=== PATIENT | female | born 1980 | race Caucasian/White ===

== ENCOUNTER 2017-12-09 09:04 | Inpatient (IN) | payer BC, OTHER ==
[2017-12-09] MEDS ORDERED: LR 1,000 ML IV ONE (09:27)
[2017-12-09] MEDS ORDERED: ACETAMINOPHEN 500 MG TAB PO ONE (10:12)
[2017-12-09] MEDS ORDERED: morphINE PF 0.2 MG in SYRINGE INTRATHECAL 1 SYR IT ONE (10:12)
[2017-12-09] MEDS ORDERED: GABAPENTIN 300 MG CAP PO ONE (10:12)
[2017-12-09] MEDS ORDERED: ceFAZolin 2 GM/DEXTROSE 100 ML IV ONE (10:12)
[2017-12-09] MEDS ORDERED: morphINE SR 15 MG TAB PO ONE ×2 (10:13→10:42)
--- NOTE | 2017-12-09 10:22 | PDHPUP ---
History & Physical Update H&P update statement: This history and physical update is based on an assessment of the patient which was completed after admission or registration (within 24 hours), but prior to the surgery/procedure. H&P update: H&P reviewed & patient examined, no change in patient's condition since H&P completed (Consents signed and site marked. All questions answered. Re-iterated the increased risk of complications like CSF leak. She is willing to proceed.)
[2017-12-09] MEDS ORDERED: BUPIVACAINE 0.25% 30 ML SDV ONE ×2 (10:38→10:40)
[2017-12-09] MEDS ORDERED: THROMBIN (BOVINE) 20,000 UNIT VIAL TP ONE (10:38)
[2017-12-09] MEDS ORDERED: BACITRACIN 50,000 UNITS/10 ML SYR IRR ONE (10:39)
[2017-12-09] MEDS ORDERED: EPINEPHrine 1 MG/ML INJ ONE (10:39)
--- NOTE | 2017-12-09 10:50 | PDANEPAE ---
ANE Past Medical History - Cardiovascular History Hx Hypertension: No Hx Arrhythmias: No Hx Chest Pain: No Hx Coronary Artery / Peripheral Vascular Disease: No Hx CHF / Valvular Disease: No Hx Palpitations: No - Pulmonary History Hx COPD: No Hx Asthma/Reactive Airway Disease: No Hx Recent Upper Respiratory Infection: No Hx Oxygen in Use at Home: No Hx Sleep Apnea: No Sleep Apnea Screening Result - Last Documented: Negative - Neurologic History Hx Cerebrovascular Accident: No Hx Seizures: No Hx Dementia: No - Endocrine History Hx Diabetes: No - Renal History Hx Renal Disorders: No - Liver History Hx Hepatic Disorders: No - Neurological & Psychiatric Hx Hx Neurological and Psychiatric Disorders: Yes Neurological / Psychiatric History Comment: sciatica, pinched nerve stabbing pain to r side of ankle and top of ankle,numb toes. decreased sensation on rle - Cancer History Hx Cancer: No - Congenital Disorder History Hx Congenital Disorders: No - GI History Hx Gastrointestinal Disorders: No - Other Health History Other Health History: none - Chronic Pain History Chronic Pain: Yes (right buttock) - Surgical History Prior Surgeries: none ANE Review of Systems Review of Systems: - Exercise capacity METS (RN): 4 METS ANE Patient History - Allergies Allergies/Adverse Reactions: No Known Allergies Allergy (Verified 12/01/17 14:28) - Home Medications Home Medications: Cyclobenzaprine [Flexeril 10 MG (*)] 10 mg PO TID 12/01/17 [Last Taken 12/08/17 22:00] Ibuprofen [Motrin (*)] 200 mg PO DAILY PRN 12/01/17 [Last Taken 12/02/17] Pregabalin [Lyrica 75mg (*)] 75 mg PO TID 12/01/17 [Last Taken 12/09/17 02:00] oxyCODONE IR [Oxycodone Ir (*)] 5 mg PO Q4HRS 12/01/17 [Last Taken 12/09/17 06: 00] - NPO status NPO Since - Liquids (Date): 12/09/17 NPO Since - Liquids (Time): 06:00 NPO Since - Solids (Date): 12/08/17 NPO Since - Solids (Time): 19:00 - Smoking Hx Smoking Status: Never smoked - Family Anes Hx Family Hx Anesthesia Complications: none ANE Labs/Vital Signs - Vital Signs Blood Pressure: 127/87 Heart Rate: 102 Respiratory Rate: 16 O2 Sat (%): 98 Height: 172.72 cm Weight: 65.771 kg ANE Physical Exam - Airway Neck exam: FROM Mallampati Score: Class 1 Mouth exam: normal dental/mouth exam - Pulmonary Pulmonary: no respiratory distress - Cardiovascular Cardiovascular: regular rate and rhythym - ASA Status ASA Status: I ANE Anesthesia Plan Anesthesia Plan: general endotracheal anesthesia
[2017-12-09] MEDS ORDERED: MIDAZOLAM 2 MG/2 ML VIAL ONE (10:54)
[2017-12-09] MEDS ORDERED: PROPOFOL/EMULSION 500 MG/50 ML BOTTLE IV ONE ×2 (10:54→11:47)
[2017-12-09] MEDS ORDERED: POLYETHYLENE GLYCOL 3350 17 GM PKT PO PRN (13:04)
[2017-12-09] MEDS ORDERED: MAGNESIUM HYDROXIDE 30 ML UDCUP PO PRN (13:04)
[2017-12-09] MEDS ORDERED: BISACODYL 10 MG SUPP PR PRN (13:04)
[2017-12-09] MEDS ORDERED: ONDANSETRON DISINTEGRATING 4 MG TAB PO PRN (13:04)
[2017-12-09] MEDS ORDERED: ONDANSETRON 4 MG/2 ML VIAL IVP PRN ×2 (13:04→14:52)
[2017-12-09] MEDS ORDERED: diphenhydrAMINE 25 MG CAP PO PRN (13:04)
[2017-12-09] MEDS ORDERED: LACTULOSE 20 GM/30 ML UDCUP PO PRN (13:04)
[2017-12-09] MEDS ORDERED: NALOXONE HCL 0.4 MG/ML INJ IVP PRN (14:52)
[2017-12-09] MEDS ORDERED: fentaNYL 100 MCG/2 ML INJ IVP PRN (14:52)
[2017-12-09] MEDS ORDERED: ALBUTEROL 3 ML DEYVIAL IH PRN (14:52)
--- NOTE | 2017-12-09 14:53 | POSTANESTH ---
Post Anesthetic Evaluation Cardiovascular Status: Similar to Pre-Op Cond Respiratory Status: Similar to Pre-op Cond. Level of Consciousness/Mental Status: Alert and Oriented Pain Control: Adequate, Prn Tx Ordered Nausea/Vomiting Control: Adequate, Prn Tx Ordered Complications Possibly Related to Anesthesia: None Noted
--- NOTE | 2017-12-09 14:54 | POSTOPPROG ---
Post Op Note Date of Operation: 12/09/17 Surgeon: Donny Chen Coverage Specialist: Nii Anesthesia: GET(General Endotracheal) Pre-op Diagnosis: lumbar stenosis, right foot weakness Post-op Diagnosis: lumbar stenosis, right foot weakness Indication: lumbar stenosis, right foot weakness Procedure: Right L4/5 and L5/S1 TLIF/PSF Inf/Abcess present in the surg proc area at time of surgery?: No EBL: 250 Drains: David CHERY Addendum - Addendum .: S: resting comfortable, low back pain O: NAD A&Ox3 MAEx4 5/5 in BUE and BLE, except right EHL/PF 4-/5. Incision c/d/i A/P 37y/o female s/p Right L4/5 and L5/S1 TLIF/PSF -Optimize pain management -PT/OT -Advance diet as tolerated -JPx1 -Post op xrays pending -DVT prophx: TEDs, SCDs, Lovenox POD1 -Please notify NS with any change in neuro/motor exam
[2017-12-09] MEDS: ACETAMINOPHEN 500 MG TAB PO SCH ×2 (15:00→21:27)
[2017-12-09] MEDS ORDERED: fentaNYL 100 MCG/2 ML INJ ONE (15:02)
--- NOTE | 2017-12-09 15:59 | PDMN ---
Medical Necessity Medical necessity: IP only surgery, cpt 80278, [facility] [place] S-820 Lumbar ) L4/5 & L5/S1 TLIF & PSF)
[2017-12-09] MEDS: NS 1,000 ML IV SCH (16:07)
[2017-12-09] MEDS: PREGABALIN 75 MG CAP PO SCH ×2 (16:08→21:27)
[2017-12-09] MEDS: oxyCODONE IR 5 MG TAB PO PRN (16:08)
[2017-12-09] MEDS: CYCLOBENZAPRINE 10 MG TAB PO SCH ×2 (16:08→21:27)
--- NOTE | 2017-12-09 16:37 | GOP ---
[f rep st] OPERATIVE REPORT DATE OF OPERATION: 12/09/2017 SURGEON: Donny Chen MD OPERATOR LIGHTS: it administrative assistant, Cristina Bales P.A.-C. ANESTHESIA: General. PREOPERATIVE DIAGNOSIS: 1. Recurrent disk herniation with foot drop, right-side L4-L5 and broad-based disk herniation right- side L5-S1. 2. History of prior microdiskectomy x2 at L4-L5, L5-S1. 3. Treatment refractory to nonoperative intervention. POSTOPERATIVE DIAGNOSIS: 1. Recurrent disk herniation with foot drop, right-side L4-L5 and broad-based disk herniation right- side L5-S1. 2. History of prior microdiskectomy x2 at L4-L5, L5-S1. 3. Treatment refractory to nonoperative intervention. PROCEDURE PERFORMED: 1. Posterior arthrodesis with approach to L4, L5, S1. 2. Posterolateral fusion with bilateral pedicle screw placement at L4, L5, S1 from the [employer] jesse 4.75 system. 3. Redo decompressive laminectomy L4-L5, L5-S1 with redo right-sided aggressive facetectomies L4-L5, L5-S1. 4. Right-sided L4-5 transforaminal lumbar interbody fusion with a 7 x 26 mm titanium coated PEEK cag e with morselized autograft and allograft. 5. Right-sided L5-S1 transfemoral lumbar interbody fusion with a 7 x 22 mm titanium coated PEEK cage with morselized autograft and allograft. 6. Posterolateral fusion on the left between L4 and S1 with morselized autograft and allograft. 7. Use of intraoperative 3D Stealth navigation. 8. Use of intraoperative fluoroscopy, less than 1 hour physician time. 9. Use of neuromonitoring. 10. Use of operating microscope. 11. Injection of preservative-free intrathecal narcotics. FINDINGS: SPECIMENS: None. ESTIMATED BLOOD LOSS: 250 cc. INDICATIONS: The patient is a 37-year-old woman who has undergone 2 prior decompressions on the righ t side L4-5, L5-S1 by Dr. Tripp Plasencia. The patient did well for some years and then presented again with worsening right lower extremity radiculopathy with foot drop. Patient's neurological deficits progress. She had evidence of a recurrent disk herniation on the right at L4-5 and a broad-based dis k bulge at L5-S1 causing nerve compression. After discussion of the risks, benefits, and alternative s after failing nonoperative intervention, we decided to proceed forth with surgery as described cheli martinez. DESCRIPTION OF PROCEDURE: Patient was brought to the operating theater and underwent general endotra cheal anesthesia without complications. She had Venodynes, BESS hose, and appropriate lines placed by Anesthesia. She was then flipped prone onto the David table. All bony processes inspected and pa dded. The lower lumbar region was then prepped and draped in usual sterile surgical fashion. A time -out was completed per protocol and the patient received antibiotics within 1 hour of incision. Using lateral fluoroscopy and a spinal needle, we then picked our entry point to the L4 through S1 le vels. This was marked in the midline incision and infiltrated with Marcaine with epinephrine. Incis ion incorporated her prior midline spinal incision. The incision was then taken with the scalpel anita de, and using monopolar taken down the midline through the lumbodorsal fascia, and Subperiosteal diss ection carried out to the transverse processes of L4, L5, and S1 bilaterally. Care was taken to avoi d the prior hemilaminotomy defects on the right side L4-5 and L5-S1. We also took care to preserve t he bilateral L3-4 facet joint. We confirmed our level using lateral fluoroscopy. We attached the 3D Stealth navigation clamp to the spinous process of L5 completed a 3D Stealth navigation spin. Using 3D Stealth navigation, we place d the dispatcher ship pilot holes for the bilateral pedicle screws in L4, L5, and S1. All holes were manually palpat ed with no evidence of any cortical breaches. We then tapped and placed 6.5 x 50 mm screws bilateral ly in L4, 6.5 x 45 mm screws bilaterally in L5, and 6.5 x 40 mm screws bilaterally in S1 from the [employer] 4.75 system. Another 3D Stealth navigation spin demonstrated good placement of the pedraza rdware. At this point, the microscope was brought on the field to assist with microscopic dissection and to m aintain illumination and magnification. Using a combination of bur tip, Kerrison punches, and Ivan l rongeur, we completed a decompressive laminectomy, L4-5, L5-S1 with a redo right-sided aggressive f acetectomy at L4-5, L5-S1. The tissue was noted to be extremely adherent and scar tissue both these levels. We then completed aggressive facetectomies on the right side L4-5, L5-S1. We moved to L4-5 where we distracted right-sided L4-5 diskectomy. She had a large free fr agment of disk material, which we then pulled out from the underside of the L5 nerve root axilla with the angled nerve hook. We retracted the thecal sac medially and prepared the cartilaginous endplate s. We measured the interbody space and placed a 7 x 26 mm titanium coated PEEK cage with morselized autograft and allograft anteriorly toward the midline. We packed additional morcellized autograft in the disk space for interbody fusion. We let down the distraction and moved down to the right side L5-S1, and again completed a right-sided L5-S1 diskectomy and prepared the cartilaginous endplates. We measured the interbody space and plac ed a 7 x 22 mm titanium coated PEEK cage filled with morselized autograft and allograft anteriorly to pate the midline. We packed additional morcellized autograft in the disk space for interbody fusion. We let down distraction, decorticated the bone on the left side between L4 and S1. The wound was irr igated copiously with bacitracin irrigation. We placed 2 lordotic rods into the heads of the screws between L4 and S1 and secured them down with cap screws, which were then tightened per the manufactur er's setting. We placed morselized autograft and allograft on the left side between L4 and S1 for th e posterolateral fusion. We injected preservative-free intrathecal narcotics. A drain was left in the subfascial space, and t he wound then closed in multiple layers, including Vicryl sutures deep layers and Dermabond for the s kin. The patient's wounds were dressed sterilely. She was then flipped supine onto the transfer car t. She was awakened, extubated, and taken to the recovery room in stable condition. There were no c omplications and no noted changes on neuromonitoring throughout the procedure. COMPLICATIONS: None. COMPLICATIONS: None. /[id number]/MODL
[2017-12-09] MEDS: ceFAZolin 2 GM/DEXTROSE 100 ML IV SCH (18:18)
[2017-12-09] MEDS: FAMOTIDINE 20 MG TAB PO SCH (21:26)
[2017-12-09] MEDS: SENNOSIDES/DOCUSATE SODIUM TAB PO SCH (21:27)
[2017-12-10] MEDS: ceFAZolin 2 GM/DEXTROSE 100 ML IV SCH (02:45)
[2017-12-10] MEDS: ACETAMINOPHEN 500 MG TAB PO SCH ×3 (05:03→21:56)
[2017-12-10] MEDS: NS 1,000 ML IV SCH (06:21)
--- NOTE | 2017-12-10 07:58 | NEUSURGPN ---
Assessment/Plan: A: 37y/o female s/p Right L4/5 and L5/S1 TLIF/PSF POD#1 Plan: -Optimize pain management -PT/OT -Advance diet as tolerated -JPx1 -Post op xrays pending -DVT prophx: TEDs, SCDs, Lovenox POD1 -Please notify NS with any change in neuro/motor exam -Pt seen by Dr Chen as well this am Subjective: Pt resting in bed, states pain is well managed. Baseline right foot tingling/ numbness/weakness Objective: AAOx3 NAD VSS MAEx4 Motor 5/5 BLE with exception of L EHL/DF appx 4-/4 +LT JPx1 Urinary Catheter in Place: No Catheter Insertion Date: 12/09/17 - Physician Discussed Patient with : April Patient Seen by : April Neurosurgery Physical Exam - Vitals, I&O, Labs I and O 12/09/17 12/10/17 12/11/17 05:59 05:59 05:59 Intake Total 3350 1173 Output Total 3220 Balance 130 1173 Weight 65.771 kg Intake: Oral (ml) 1850 IV Intake (ml) 1500 1173 Output: Urine (ml) 2700 Catheter 2700 Estimated Blood Loss (ml) 250 SEVERIANO Drain Output (ml) 270 Back David Banuelos 270 Other: Intake Quantity Yes Sufficient Number of Voids Catheter 1 Vital Signs Temp Pulse Resp BP Pulse Ox 37.1 C 81 16 96/64 L 98 12/10/17 04:00 12/10/17 04:00 12/10/17 04:00 12/10/17 04:00 12/10/17 04:00 ICD10 Worksheet Patient Problems: Problems Problem Status Onset Lumbar degenerative disc disease Acute - ICD10 Problem Qualifiers (1) Lumbar degenerative disc disease
[2017-12-10] MEDS: PREGABALIN 75 MG CAP PO SCH ×3 (08:56→21:57)
[2017-12-10] MEDS: SENNOSIDES/DOCUSATE SODIUM TAB PO SCH ×2 (08:56→21:58)
[2017-12-10] MEDS: CYCLOBENZAPRINE 10 MG TAB PO SCH ×3 (08:57→21:57)
[2017-12-10] MEDS: FAMOTIDINE 20 MG TAB PO SCH ×2 (08:57→21:57)
[2017-12-10] MEDS: oxyCODONE IR 5 MG TAB PO PRN ×4 (11:00→21:59)
--- NOTE | 2017-12-10 14:23 | ASMTCMCOM ---
CM Note CM Note Notes: Pt had surgery for lumbar stenosis. PT rec home/outpatient PT. OT eval pending. Pt resides with spouse and minor children. CM to follow. S/c plan of care: TBD Date Signed: 12/10/2017 02:23 PM Electronically Signed By:DARLYN Florentino
[2017-12-10] MEDS: ENOXAPARIN 40 MG/0.4 ML SYR SC SCH (15:28)
[2017-12-11] MEDS: oxyCODONE IR 5 MG TAB PO PRN ×3 (01:19→11:12)
[2017-12-11] MEDS: ACETAMINOPHEN 500 MG TAB PO SCH (05:46)
[2017-12-11 08:32] VITALS: BP 92/52
[2017-12-11] MEDS: CYCLOBENZAPRINE 10 MG TAB PO SCH (09:32)
[2017-12-11] MEDS: PREGABALIN 75 MG CAP PO SCH (09:33)
[2017-12-11] MEDS: SENNOSIDES/DOCUSATE SODIUM TAB PO SCH (09:33)
[2017-12-11] MEDS: FAMOTIDINE 20 MG TAB PO SCH (09:33)
[2017-12-11] MEDS: ENOXAPARIN 40 MG/0.4 ML SYR SC SCH (09:35)
--- NOTE | 2017-12-11 10:19 | NEUSURGPN ---
Assessment/Plan: Assessment/Plan: A: 37y/o female s/p Right L4/5 and L5/S1 TLIF/PSF POD#2 Plan: -Optimize pain management- Doing great on current management -PT/OT -JPx1- removed this morning -Post op xrays show good hardware placement -DVT prophx: TEDs, SCDs, Lovenox- ambulating well -Please notify NS with any change in neuro/motor exam -Pt discussed with Dr. Chen and Dr. Frey supervisor fabrication -Home later this afternoon Subjective: Pt resting in bed, states pain is well managed. Doing well with PT yesterday and walking well. Pain well managed. Baseline right foot tingling/numbness/ weakness Objective: AAOx3 NAD VSS MAEx4 Motor 5/5 BLE with exception of L EHL/DF appx 4-/4 +LT Incision c/d/i- dressing removed JPx1 removed without difficulty Catheter Insertion Date: 12/09/17 - Physician Discussed Patient with : April Neurosurgery Physical Exam - Vitals, I&O, Labs I and O 12/10/17 12/11/17 12/12/17 05:59 05:59 05:59 Intake Total 3350 5189 Output Total 3220 3135 1150 Balance 130 2054 -1150 Weight 65.771 kg Intake: Oral (ml) 1850 3016 IV Intake (ml) 1500 1173 IV Infused (ml) 1000 Ns 1,000 ml @ 75 mls/hr 1000 IV CONT LOKI Rx#: [id number] Output: Urine (ml) 2700 2950 1100 Catheter 2700 Toilet 2950 1100 Estimated Blood Loss (ml) 250 SEVERIANO Drain Output (ml) 270 185 50 Back David Banuelos 270 185 50 Other: Intake Quantity Yes Yes Sufficient Number of Voids Catheter 1 Toilet 1 Bladder Scan Volume (ml) Catheter 300 Vital Signs Temp Pulse Resp BP Pulse Ox 36.8 C 88 14 92/52 L 98 12/11/17 08:00 12/11/17 08:00 12/11/17 08:00 12/11/17 08:00 12/11/17 08:00 ICD10 Worksheet Patient Problems: Problems Problem Status Onset Lumbar degenerative disc disease Acute
== END 2017-12-11 13:03 | disposition home or self-care (01) | DRG 455 ==
LOC: F3N 09:04
PROVIDERS: ADMIT Neurological Surgery; ATTEND Neurological Surgery
PROC: 0SG3071 Fusion of Lumbosacral Joint with Autologous Tissue Substitute, Posterior Approach, Posterior Column, Open Approach (ICD-10-PCS; principal; 2017-12-09 11:15)
PROC: 0SG00AJ Fusion of Lumbar Vertebral Joint with Interbody Fusion Device, Posterior Approach, Anterior Column, Open Approach (ICD-10-PCS; principal; 2017-12-09 11:15)
PROC: 8E0WXBZ Computer Assisted Procedure of Trunk Region (ICD-10-PCS; principal; 2017-12-09 11:15)
PROC: 4A1004G Monitoring of Central Nervous Electrical Activity, Intraoperative, Open Approach (ICD-10-PCS; principal; 2017-12-09 11:15)
PROC: 0SG30A0 Fusion of Lumbosacral Joint with Interbody Fusion Device, Anterior Approach, Anterior Column, Open Approach (ICD-10-PCS; principal; 2017-12-09 11:15)
PROC: 0SG0071 Fusion of Lumbar Vertebral Joint with Autologous Tissue Substitute, Posterior Approach, Posterior Column, Open Approach (ICD-10-PCS; principal; 2017-12-09 11:15)
PROC: 01NB0ZZ Release Lumbar Nerve, Open Approach (ICD-10-PCS; principal; 2017-12-09 11:15)
PROC: 00NY0ZZ Release Lumbar Spinal Cord, Open Approach (ICD-10-PCS; principal; 2017-12-09 11:15)
DX: M48.061 Spinal stenosis, lumbar region without neurogenic claudication (principal); M51.26 Other intervertebral disc displacement, lumbar region; M51.27 Other intervertebral disc displacement, lumbosacral region; M21.371 Foot drop, right foot; M54.16 Radiculopathy, lumbar region
CPT/HCPCS: 97116-GP; 97161-GP; 97165-GO; C1713; J0171; J0690; J1650; J2250; J2274; J2704; J3010